=== PATIENT | male | born 1970 | race Hispanic/Latino ===

== ENCOUNTER 2018-12-09 07:28 | Outpatient (CLI) | payer OTHER ==
--- NOTE | 2018-12-09 09:31 | RAD ---
LEFT KNEE TWO VIEWS: HISTORY: Fall. Left knee pain. FINDINGS: No dislocation is seen. There is a questionable nondisplaced fracture involving the superior tip of t he fibula. POS: OFF
--- NOTE | 2018-12-09 09:41 | RAD ---
LEFT FOOT THREE VIEWS: HISTORY: Fall. Left foot pain. FINDINGS: A plantar calcaneal spur is present. No acute fracture or dislocation is identified. POS: OFF
--- NOTE | 2018-12-09 09:42 | RAD ---
RADIOGRAPH LEFT LEG TIBIA AND FIBULA TWO VIEWS: 12/09/2018 HISTORY: A 48-year-old male status post acute leg trauma: contusion of left lower extremity, S80.12XA. FINDINGS: There is no evidence of fracture of the tibia or fibula. IMPRESSION: Negative. POS: CET
--- NOTE | 2018-12-09 09:42 | RAD ---
LEFT ANKLE 3 VIEWS: Date: 12/09/18 HISTORY: Fall, left ankle pain. FINDINGS/IMPRESSION: Soft tissue swelling is present. The ankle mortise is maintained. No acute fracture or dislocation is seen. A plantar calcaneal spur is present. POS: OFF
== END 2018-12-09 07:29 | disposition home or self-care (01) ==
LOC: BICRAD 07:28
PROVIDERS: ATTEND Nurse Practitioner Family
DX: S80.12XA Contusion of left lower leg, initial encounter (principal); M79.89 Other specified soft tissue disorders; M77.32 Calcaneal spur, left foot

== ENCOUNTER 2019-03-08 20:07 | Inpatient (IN) ==
[2019-03-08 20:49] LABS: Bilirubin Negative (Negative); Blood, Urine Negative (Negative); Clarity Turbid (Clear); Glucose, Urine (Dipstick) Normal (Negative); Leukocyte Negative Leu/uL (Negative); Nitrite Negative (Negative); Protein, Urine (Dipstick) 10 mg/dL (Neg-Trace); Urobilinogen Normal mg/dL (Less than 2)
[2019-03-08 20:52] LABS: #Lymphocytes 1.6 thou/uL (1.20-3.40); #Monocytes 0.3 thou/uL (0.11-0.59); #Neutrophils 10.4 thou/uL (1.40-6.50); %Basophils 0.3 % (0.0-1.0); %Eosinophils 0.3 % (0.0-10.0); %Lymphocytes 12.7 % (21.0-51.0); %Monocytes 2.1 % (0.0-10.0); %Neutrophils 84.7 % (42.0-75.0); Hemoglobin 15.9 g/dL (14.0-18.0); Mean Corpuscular HGB CONC 35.5 g/dL (32.0-36.0); Mean Corpuscular Volume 98.8 fL (78.0-98.0); Mean Platelet Volume 7.6 fL (7.4-10.4); Platelet Count 250 thou/uL (130-400); RBC Distribution Width 11.9 % (11.5-14.5); Red Blood Cell (RBC) Count 4.53 mill/uL (4.70-6.10); White Blood Cell (WBC) Count 12.3 thou/uL (4.8-10.8)
--- NOTE | 2019-03-08 20:53 | RAD ---
Chest AP view INDICATION: Right-sided abdominal pain after eating COMPARISON: None FINDINGS: Lungs:The lungs are clear Cardiac silhouette:The cardiomediastinal silhouette appears within normal limits. Pulmonary vasculature:Normal Pleural spaces:No pleural effusion or pneumothorax is demonstrated. Upper abdomen:No abnormality seen. Osseous structures: No acute osseous abnormality. Additional findings:None. IMPRESSION: No acute cardiopulmonary abnormality.
[2019-03-08 20:55] LABS: ALT (SGPT) 17 U/L (8-55); AST (SGOT) 15 U/L (5-34); Albumin 4.5 g/dL (3.5-5.0); Alkaline Phosphatase 91 U/L (40-110); Anion Gap 14 mmol/L (10-20); BUN (Urea Nitrogen) 10 mg/dL (8.9-20.6); Bilirubin, Total 1.2 mg/dL (0.2-1.2); CK (CPK) 169 U/L (30-200); Calc. Creatinine Clearance 0 mL/min (70-130); Calcium 8.8 mg/dL (7.8-10.44); Carbon Dioxide 24 mmol/L (22-29); Chloride 102 mmol/L (98-107); Estimated GFR-MDRD Greater than 90; Globulin 3.4 g/dL (2.4-3.5); Glucose 145 mg/dL (70-105); Lipase 24 U/L (8-78); Potassium 3.3 mmol/L (3.5-5.1); Protein, Total 7.9 g/dL (6.0-8.3); Sodium 137 mmol/L (136-145)
[2019-03-08] MEDS ORDERED: Morphine 4 MG/ML VIAL ONE ×2 (20:55→21:38)
[2019-03-08] MEDS ORDERED: Ondansetron PF 4 MG/2 ML Vial ONE (20:56)
--- NOTE | 2019-03-08 21:40 | ULT ---
RIGHT UPPER QUADRANT ULTRASOUND CLINICAL HISTORY: Right upper quadrant epigastric abdominal pain. COMPARISON: None FINDINGS: Liver:Normal echotexture without focal mass. Intrahepatic bile ducts: No intrahepatic or extrahepatic biliary dilation.; Common bile duct: 7.8 mm. Gallbladder: There is gallbladder sludge with stones within the gallbladder. There is gallbladder wal l thickening measuring up to 4.6 mm. Phillips's sign:Positive Main portal vein:Patent with hepatopedal flow. Pancreas:Obscured by overlying bowel gas Right kidney: Right kidney measures 11.8 x 5.3 x 5.1 cm. No focal renal lesion or hydronephrosis. Additional findings: None. IMPRESSION: Findings suspicious for acute calculus cholecystitis. There is dilatation of the common bile duct. Di stal obstructing sludge or stones is not excluded.
[2019-03-08] MEDS ORDERED: MEROPENEM 1 GM/50 ML 1 GM in Premix Bag 1 BAG IVPB SCH (22:15)
[2019-03-08] MEDS ORDERED: Ondansetron PF 4 MG/2 ML Vial IVP PRN (23:57)
[2019-03-08] MEDS ORDERED: Ondansetron ODT 4 MG TAB SL PRN (23:57)
[2019-03-09] MEDS: Morphine 4 MG/ML VIAL SLOW IVP PRN ×3 (00:12→07:05)
[2019-03-09] MEDS: D5 1/2 NS w/20 mEq KCL 1,000 ML IV SCH ×4 (00:13→22:27)
[2019-03-09 00:33] VITALS: BMI 29.0
[2019-03-09] MEDS ORDERED: MEROPENEM 1 GM/50 ML 1 GM in Premix Bag 1 BAG IVPB SCH (06:00)
[2019-03-09] MEDS ORDERED: Glycopyrrolate 0.2 MG/ML 5 ML SYRINGE ONE (10:35)
[2019-03-09] MEDS ORDERED: PHENYLEPHRINE-NS 100 MCG/ML 10 ML SYRINGE ONE (10:35)
[2019-03-09] MEDS ORDERED: Lidocaine 1% PF 5 ML VIAL ONE (10:35)
[2019-03-09] MEDS ORDERED: PROPOFOL 200 MG/20 ML VIAL ONE (10:35)
[2019-03-09] MEDS ORDERED: Ondansetron PF 4 MG/2 ML Vial ONE (10:35)
[2019-03-09] MEDS ORDERED: Rocuronium Bromide 10 MG/ML (10ML VIAL) ONE (10:35)
[2019-03-09] MEDS ORDERED: Morphine 4 MG/ML VIAL ONE (12:45)
[2019-03-09] MEDS ORDERED: Promethazine HCl 25 MG/ML VIAL IM PRN ×2 (12:55→16:05)
[2019-03-09] MEDS ORDERED: Calcium Carbonate 500 MG ChewTAB PO PRN (12:55)
[2019-03-09] MEDS ORDERED: Mag-Al 1200 mg/1200 mg/30 ML UDCUP PO PRN (12:55)
[2019-03-09] MEDS ORDERED: hydrALAZINE 20 MG/ML VIAL SLOW IVP PRN (12:55)
[2019-03-09] MEDS ORDERED: Ondansetron PF 4 MG/2 ML Vial IVP PRN (12:55)
[2019-03-09] MEDS ORDERED: Dextrose 50% Abboject 50 ML SYRINGE SLOW IVP PRN (12:55)
[2019-03-09] MEDS ORDERED: Dextrose 5% in Water 1,000 ML IV PRN (12:55)
[2019-03-09] MEDS ORDERED: Morphine 2 MG/ML SYRINGE SLOW IVP PRN (12:55)
--- NOTE | 2019-03-09 12:55 | PDOC.BPN ---
- Brief Progress Note Doing well. No acute complaints. Less pain than last night. Vital Signs (12 hours) Temp Pulse Resp BP Pulse Ox 03/09/19 11:37 98.5 F 113 H 18 96/57 L 99 03/09/19 08:00 98.4 F 106 H 16 119/72 98 03/09/19 03:49 98.2 F 97 16 145/76 H 98 Weight Weight 180 lb A/O, NAD CTAB ABD S/ND. Mild epigastric TTP without evidence of peritonitis. No new labs. Plan: plan for laparocopic cholecystectomy later today.
[2019-03-09] MEDS ORDERED: Bupivacaine 0.25% HCL 30 ML VIAL ONE (13:39)
[2019-03-09] MEDS ORDERED: Lidocaine 1% w/Epinephrine 1:100K 20 ML VIAL ONE (13:39)
[2019-03-09] MEDS ORDERED: Iothalamate Meglumine 60% 50 ML VIAL FS ONE (13:39)
[2019-03-09] MEDS ORDERED: Fentanyl 100 MCG/2 ML VIAL ONE ×4 (14:00→16:44)
[2019-03-09] MEDS ORDERED: Midazolam HCl 2 mg/2 ml Vial ONE (14:00)
--- NOTE | 2019-03-09 14:11 | PDOC.GSCN ---
Surgery Consult: HPI - Consult details Date: 03/09/19 Time: 09:00 Reason for consult: abdominal pain History of present illness: 03/09/19 14:10 48yo male with one day history of epigastric pain. Pain characterized as "hard" and radiating along the right subcostal margin. No N/V/D. Surgery Consult: ROS - Review of Systems All systems: 10 systems reviewed and no additional complaints unless stated below. Surgery Consult: PMH Past Medical History: None Past Surgical History: None - Past Family History Family history: reviewed and not pertinent - Past Social History Smoking Status: Never smoker Alcohol Use: rarely Drug Use History: none Surgery Consult: Exam - Vital signs Vital signs: Vital Signs - Most Recent Temp Pulse Resp BP Pulse Ox 98.5 F 113 H 18 96/57 L 99 03/09/19 11:37 03/09/19 11:37 03/09/19 11:37 03/09/19 11:37 03/09/19 11:37 - Physical Exam General: no distress, well developed Eye: normal ocular movement, PERRL ENT: normal mucosa, normal nares Neck: no bruits, no lymphadectomy, no masses Respiratory: clear to auscultation Abdomen: soft, tender Integumentary: no abnormal pigmentation, no growths Neurologic: normal coordination, normal sensation Musculoskeletal: normal gait, normal posture Psychiatric: oriented to time, oriented to person, oriented to place Surgery Consult: Meds - Medications Medications: Current Medications Hydrocodone Bitart/Acetaminophen ([place] 10/325) 1 tab PO Q6H PRN PRN Reason: Moderate Pain (4-6) Al Hydroxide/Mg Hydroxide (Maalox) 15 ml PO Q6H PRN PRN Reason: Dyspepsia Albuterol/Ipratropium (Duoneb) 3 ml NEB [id number] PRN PRN Reason: Wheezing Calcium Carbonate (Tums) 1,000 mg PO Q4H PRN PRN Reason: Dyspepsia Dextrose/Water (Dextrose 50%) 25 gm SLOW IVP PRN PRN PRN Reason: Hypoglycemia Enoxaparin Sodium (Lovenox) 40 mg SC 0900 ERIC Glucagon (Glucagon) 1 mg IM PRN PRN PRN Reason: Hypoglycemia Hydralazine HCl (Apresoline) 10 mg SLOW IVP Q4H PRN PRN Reason: SBP > 170 or DBP > 100 Potassium Chloride/Dextrose/Sod Cl (D5 1/2 Ns W/20 Meq Kcl) 1,000 mls @ 120 mls /hr IV .Q8H20M ERIC Dextrose/Water (D5w) 1,000 mls @ 0 mls/hr IV .Q0M PRN PRN Reason: Hypoglycemia Ketorolac Tromethamine (Toradol) 30 mg IVP Q6HR ERIC Stop: 03/14/19 18:01 Morphine Sulfate (Morphine) 2 mg SLOW IVP Q2H PRN PRN Reason: Mild Pain (1-3) Ondansetron HCl (Zofran) 4 mg IVP Q6H PRN PRN Reason: Nausea/Vomiting Promethazine HCl (Phenergan) 12.5 mg IM Q4H PRN PRN Reason: Nausea/Vomiting - Allergies Allergies/Adverse Reactions: Allergies Allergy/AdvReac Type Severity Reaction Status Date / Time No Known Allergies Allergy Unverified 03/08/19 22:07 Surgery Consult: Results - Labs Result Diagrams: 03/08/19 20:32 03/08/19 20:32 Lab results: Laboratory Results WBC 12.3 thou/uL (4.8-10.8) H 03/08/19 20: RBC 4.53 mill/uL (4.70-6.10) L 03/08/19 20:32 Hgb 15.9 g/dL (14.0-18.0) 03/08/19 20:32 Hct 44.7 % (42.0-52.0) 03/08/19: MCV 98.8 fL (78.0-98.0) H 03/08/19 20: MCH 35.0 pg (27.0-31.0) H 03/08/19 20: MCHC 35.5 g/dL (32.0-36.0) 03/08/19 20: RDW 11.9 % (11.5-14.5) 03/08/19 20: Plt Count 250 thou/uL (130-400) 03/08/19 20:32 MPV 7.6 fL (7.4-10.4) 03/08/19 20: Neutrophils % 84.7 % (42.0-75.0) H 03/08/19 20:32 Lymphocytes % 12.7 % (21.0-51.0) L 03/08/19 20:32 Monocytes % 2.1 % (0.0-10.0) 03/08/19 20:32 Eosinophils % 0.3 % (0.0-10.0) 03/08/19 20:32 Basophils % 0.3 % (0.0-1.0) 03/08/19 20:32 Neutrophils # 10.4 thou/uL (1.40-6.50) H 03/08/19 20:32 Lymphocytes # 1.6 thou/uL (1.20-3.40) 03/08/19 20: Monocytes # 0.3 thou/uL (0.11-0.59) 03/08/19 20:32 Eosinophils # 0.0 thou/uL (0.0-0.7) 03/08/19 20:32 Basophils # 0.0 thou/uL (0.0-0.2) 03/08/19 20:32 Sodium 137 mmol/L (136-145) 03/08/19 20:32 Potassium 3.3 mmol/L (3.5-5.1) L 03/08/19 20:32 Chloride 102 mmol/L (98-107) 03/08/19 20:32 Carbon Dioxide 24 mmol/L (22-29) 03/08/19 20:32 Anion Gap 14 mmol/L (10-20) 03/08/19 20:32 BUN 10 mg/dL (8.9-20.6) 03/08/19 20:32 Creatinine 0.82 mg/dL (0.7-1.3) 03/08/19 20:32 Estimated GFR (MDRD) Greater than 90 03/08/19 20:32 Glucose 145 mg/dL (70-105) H 03/08/19 20:32 Calcium 8.8 mg/dL (7.8-10.44) 03/08/19 20:32 Total Bilirubin 1.2 mg/dL (0.2-1.2) 03/08/19 20:32 AST 15 U/L (5-34) 03/08/19 20:32 ALT 17 U/L (8-55) 03/08/19 20:32 Alkaline Phosphatase 91 U/L (40-110) 03/08/19: Creatine Kinase 169 U/L (30-200) 03/08/19 Troponin I 0.016 ng/mL (< 0.028) 03/08/19 B-Natriuretic Peptide 17.1 pg/mL (0-100) 03/08/19 20: Serum Total Protein 7.9 g/dL (6.0-8.3) 03/08/19 Albumin 4.5 g/dL (3.5-5.0) 03/08/19 Globulin 3.4 g/dL (2.4-3.5) 03/08/19 Albumin/Globulin Ratio 1.3 g/dL (1.2-2.2) 03/08/19 Lipase 24 U/L (8-78) 03/08/19 Urine Color Light-Yellow (Yellow) 03/08/19 20: Urine Clarity Turbid (Clear) A 03/08/19 20: Urine pH 8.5 (5.0-9.0) 03/08/19 20: Ur Specific [place] 1.018 (1.002-1.036) 03/08/19 20: Urine Protein 10 mg/dL (Neg-Trace) 03/08/19 20: Urine Glucose (UA) Normal mg/dL (Negative) 03/08/19 20: Urine Ketones 10 mg/dL (Negative) A 03/08/19 20:30 Urine Blood Negative (Negative) 03/08/19 20: Urine Nitrite Negative (Negative) 03/08/19 20: Urine Bilirubin Negative (Negative) 03/08/19 20: Urine Urobilinogen Normal mg/dL (Less than 2) 03/08/19 20:30 Ur Leukocyte Esterase Negative Abran/uL (Negative) 03/08/19 20: - Radiology Interpretation US - abdomen Additional comments: US reviewed as well as the radiologists interpretation. Demonstrates a thickened GBW c/w acute cholecystitis Surgery Consult: A/P - Problem (1) Acute cholecystitis Current Visit: Yes Code(s): K81.0 - ACUTE CHOLECYSTITIS Status: Acute - Plan Plan: Plan for laparoscopic cholecystectomy with IOC. Risks and benefits discussed. Informed consent obtained.
[2019-03-09] MEDS ORDERED: ceFOXitin 2 GM/50 ML Duplex BAG ONE (14:14)
[2019-03-09] MEDS ORDERED: Meperidine HCl/PF 25 MG/ML VIAL ONE (16:04)
[2019-03-09] MEDS ORDERED: Ondansetron HCl/PF 4 MG/2 ML Vial IVP PRN (16:05)
[2019-03-09] MEDS ORDERED: Meperidine HCl/PF 25 MG/ML VIAL SLOW IVP PRN (16:05)
[2019-03-09] MEDS ORDERED: Promethazine HCl 25 MG/ML VIAL SLOW IVP PRN (16:05)
[2019-03-09] MEDS ORDERED: Promethazine HCl 25 MG/ML VIAL ONE (16:06)
[2019-03-09] MEDS ORDERED: Labetalol HCl 100 MG/20 ML VIAL ONE (16:37)
--- NOTE | 2019-03-09 17:02 | OP ---
DATE OF PROCEDURE: 03/09/2019 PREOPERATIVE DIAGNOSIS: 1. Acute cholecystitis. 2. Umbilical hernia POSTOPERATIVE DIAGNOSIS: 1. Acute cholecystitis. 2. Umbilical hernia PROCEDURE PERFORMED: 1. Laparoscopic cholecystectomy with intraoperative cholangiogram. 2. Umbilical hernia repair INDICATIONS: This is a 48-year-old male with one day history of right upper quadrant pain. His emergency department workup was consistent with acute cholecystitis. The relative risks and benefits of laparoscopic cholecystectomy were discussed in detail with the patient, specifically addressing the risks of bile leak and common bile duct injury. Informed consent was obtained. DESCRIPTION OF PROCEDURE: The patient was brought to the operating room and positioned supine on the operating room table. After induction of general, endotracheal anesthesia, the patient was prepared and draped in the usual fashion. Prior to beginning the procedure, a complete time-out was performed with all members of the operative team being present and in agreement. Access to the abdomen was obtained in the right upper quadrant using an Optiview trocar under direct visualization. The abdomen was insufflated and examined. Severe inflammation was found in the area of the gallbladder. The umbilicus was examined and the hernia contents noted to be incarcerated preperitoneal fat. Additional trocars were placed under direct visualization. The gallbladder was grasped and retracted cephalad. Blunt dissection and electrocautery were used to remove the adherent omentum. The critical view of safety was dissected using blunt dissection and electrocautery until the critical view of safety was achieved. A Ascencio clamp was introduced and the fundus of the gallbladder grasped. The catheter was introduced into the cystic duct and cholangiogram performed. This demonstrated easy flow into the duodenum with no notable filling defects. The left and right hepatic branches were also well identified. After completion of the cholangiogram, the cystic duct and cystic artery were divided between clips. The gallbladder was removed from the gallbladder bed using electrocautery. There was modest oozing from the gallbladder bed. This was managed with electrocautery until hemostasis was achieved. The abdominal cavity was then irrigated and suctioned free of all debris and clots. The gallbladder was placed in a specimen bag and removed through the 12 mm port. The 12 mm port was dissected to demonstrate an umbilical hernia. The umbilical hernia was dissected circumferentially and transected at the base. The fascial edges were cleared and the fascia reapproximated using interrupted 0-Prolene tie using a suture passer. At the completion of the case, all sponges and instrument counts were correct. ESTIMATED BLOOD LOSS: 30 mL. COMPLICATIONS: None. SPECIMENS: Gallbladder. DISPOSITION: The patient was transported to the postoperative recovery unit, to be returned to the floor when discharge criteria were met. Job ID: [id number] MTDD
[2019-03-09] MEDS ORDERED: D5 1/2 NS w/20 mEq KCL 1,000 ML ONE (17:19)
[2019-03-09] MEDS: Ketorolac Tromethamine 30 MG/ML VIAL IVP SCH (17:53)
[2019-03-09] MEDS: HYDROcodone/Acetaminophen 10/325 mg Tablet PO PRN (19:13)
[2019-03-10] MEDS: Ketorolac Tromethamine 30 MG/ML VIAL IVP SCH ×3 (00:40→12:10)
[2019-03-10] MEDS: HYDROcodone/Acetaminophen 10/325 mg Tablet PO PRN ×3 (04:41→16:45)
[2019-03-10] MEDS: D5 1/2 NS w/20 mEq KCL 1,000 ML IV SCH ×2 (06:06→13:57)
--- NOTE | 2019-03-10 08:12 | RAD ---
Intraoperative cholangiogram 2 view: DATE: 03/10/2019 HISTORY: 48-year-old male with acute cholecystitis. FINDINGS: A total of 64 images from OR. Contrast injection into the cystic duct stump. Diffuse mild dilation of common bile duct, common hepatic duct, hepatic ducts, and biliary radicles. No filling defect identified. Contrast visualized in a portion of duodenal lumen. Ampulla obscured by metallic instrume nt. IMPRESSION: 1. Mild dilation of biliary tree. 2. Ampulla obscured by metallic instrument. 3. Otherwise no choledocholithiasis identified elsewhere.
[2019-03-10] MEDS ORDERED: Enoxaparin Sodium 40 MG/0.4 ML SYRINGE SC SCH (09:00)
[2019-03-10 15:24] VITALS: BP 130/80; TEMP 98.2
--- NOTE | 2019-03-11 14:08 | DIS ---
DATE OF ADMISSION: 03/08/2019 DATE OF DISCHARGE: 03/10/2019 ADMISSION DIAGNOSIS: Acute cholecystitis. DISCHARGE DIAGNOSIS: Acute cholecystitis. PROCEDURES: Laparoscopic cholecystectomy with intraoperative cholangiogram. HOSPITAL COURSE: This is a 48-year-old male who presented to the emergency department with right upper quadrant pain. His emergency department workup was consistent with acute cholecystitis. He was placed on observation and taken to the operating room later that day. He tolerated procedure well, was returned to the floor. While on the floor, his diet was advanced to regular which he tolerated. He was ambulated early in his postoperative course. On postoperative day #1, he was tolerating regular diet, his pain was well controlled with oral analgesia only, he was ambulating independently and voiding spontaneously. He is appropriate for discharge. DISCHARGE DISPOSITION: Home. CONDITION: Good. DISCHARGE MEDICATION: Tylenol No.3. Job ID: [id number]
== END 2019-03-10 17:36 | disposition home or self-care (01) | DRG 419 ==
LOC: ERS 20:07 → SURG B 22:00 → ERS 23:38
PROVIDERS: ADMIT Surgery; ATTEND Surgery
PROC: 0FT44ZZ Resection of Gallbladder, Percutaneous Endoscopic Approach (ICD-10-PCS; principal; 2019-03-09)
PROC: 0WQF4ZZ Repair Abdominal Wall, Percutaneous Endoscopic Approach (ICD-10-PCS; 2019-03-09)
PROC: BF111ZZ Fluoroscopy of Biliary and Pancreatic Ducts using Low Osmolar Contrast (ICD-10-PCS; 2019-03-09)
DX: K81.0 Acute cholecystitis (principal); K42.9 Umbilical hernia without obstruction or gangrene
CPT/HCPCS: 36415; 47532; 71045; 76705; 80053; 81003; 82550; 83690; 83880; 84484; 85025; 88304; 93005; 96361; 96365; 96375; 96376; J0694; J1610; J1650; J1885; J2001; J2175; J2185; J2250; J2270; J2405; J2550; J2704; J3010; J7620; S0020